=== PATIENT | male | born 1965 | race American Indian/Alaskan Native ===

== ENCOUNTER 2017-07-01 09:42 | Day surgery (SDC) | payer MEDICARE ==
[2017-06-29 11:41] VITALS: BMI 30.4
[2017-07-01] MEDS ORDERED: Bupivacaine HCl 0.25% PF (10 ml) Inj ONE (12:09)
[2017-07-01] MEDS ORDERED: ceFAZolin IV 1 gm in Dextrose 1 GM/50 ML BAG IVPB ONE (12:09)
[2017-07-01] MEDS ORDERED: Lidocaine 1% Inj (20ml) ONE (12:09)
[2017-07-01] MEDS ORDERED: Lactated Ringer's 1,000 ML IV ONE (12:20)
[2017-07-01] MEDS ORDERED: Midazolam 2 MG/2 ML VIAL ONE (12:21)
[2017-07-01] MEDS ORDERED: Propofol 10 mg/ml Inj (20 ML) ONE (12:21)
[2017-07-01] MEDS ORDERED: Oxycodone/Acetaminophen 5/325 mg Tab PO PRN (12:49)
[2017-07-01 13:57] VITALS: RESP 16
[2017-07-01 15:07] VITALS: BP 120/74; PULSE 81; TEMP 97.6; O2SAT 95
--- NOTE | 2017-07-02 08:15 | OP ---
PROCEDURE DATE: 07/01/2017 PREOPERATIVE DIAGNOSIS: A mass of the left periorbital region. POSTOPERATIVE DIAGNOSIS: A mass of the left periorbital region. PROCEDURE PERFORMED: Wide and deep excision of mass of the left periorbital region. SURGEON: Derian Emmanuel MD. TYPE OF ANESTHESIA: General. ESTIMATED BLOOD LOSS: 20 mL. POSTOPERATIVE CONDITION: Stable. DESCRIPTION OF PROCEDURE: The patient was taken to the operating room. IV sedation was administered. The left side of the face was prepped and draped. An elliptical incision was made over the mass, which dissected the fascia and removed. Bleeding was controlled using the Bovie. A small branch of the facial artery was repaired. The wound was irrigated with saline. Flaps were raised and closure was performed with 5-0 Vicryl. The patient tolerated the procedure well, returned to the recovery room in stable condition. Derian Emmanuel MD
== END 2017-07-01 14:45 | disposition home or self-care (01) ==
LOC: C.SDS 09:42
PROVIDERS: ATTEND Surgery
DX: L72.3 Sebaceous cyst (principal); L72.0 Epidermal cyst
CPT/HCPCS: 11443; 82948; 88305; J2250; J2704; J3010; J7120